=== PATIENT | male | born 1990 | race Caucasian/White ===

== ENCOUNTER 2020-10-07 19:07 | Emergency (ER) | payer SELFPAY ==
[~2020-10-07] VITALS: Ht 177.8 cm; Wt 81.7 kg
[2020-10-07] MEDS ORDERED: DOXYCYCLINE HY100 MG PO (19:46)
== END 2020-10-07 20:19 | disposition home or self-care (01) ==
LOC: ED 19:07
DX: T63.441A Toxic effect of venom of bees, accidental (unintentional), initial encounter (principal); S91.301A Unspecified open wound, right foot, initial encounter; F17.200 Nicotine dependence, unspecified, uncomplicated; Z23 Encounter for immunization; L03.115 Cellulitis of right lower limb; W22.8XXA Striking against or struck by other objects, initial encounter
CPT/HCPCS: 90471; 90714; 99283-25